=== PATIENT | female | born 1970 | race Caucasian/White ===

== ENCOUNTER 2017-10-09 10:16 | Emergency (ER) | payer OTHER ==
[~2017-10-09] VITALS: Ht 165.1 cm; Wt 108.0 kg
[2017-10-09 10:29] VITALS: BP 160/94
[2017-10-09 12:02] LABS: BASOPHILS # (AUTO) 0.01 x10^3/uL (0-0.1); BASOPHILS % (AUTO) 0 % (0-1); EOSINOPHILS # (AUTO) 0.48 x10^3/uL (0-0.4); EOSINOPHILS % (AUTO) 8 % (1-7); HCT (SEDRATE) 38.5 % (34.6-47.8); LYMPHOCYTES # (AUTO) 1.27 x10^3/uL (1-3.4); LYMPHOCYTES % (AUTO) 21 % (22-44); MD NO; MEAN CORPUSCULAR HEMOGLOBIN 29.3 pg (27.0-34.8); MEAN CORPUSCULAR HGB CONC 32.9 g/dL (32.4-35.8); MEAN CORPUSCULAR VOLUME 89.1 fL (80-100); MEAN PLATELET VOLUME 7.6 fL (7.4-10.4); MONOCYTES # (AUTO) 0.52 x10^3/uL (0.2-0.8); MONOCYTES % (AUTO) 9 % (2-9); NEUTROPHILS # (AUTO) 3.67 x10^3/uL (1.8-6.8); NEUTROPHILS % (AUTO) 62 % (42-75); PLATELET COUNT 222 x10^3/uL (130-400); RED BLOOD COUNT 4.33 x10^6/uL (3.82-5.3); RED CELL DISTRIBUTION WIDTH 14.1 % (9.6-15.2)
[2017-10-09 12:13] LABS: ALBUMIN 3.4 g/dL (3.4-5.0); ANION GAP 4 mmol/L (5-15); CALCIUM 8.7 mg/dL (8.5-10.1); CHLORIDE 108 mmol/L (98-107)
[2017-10-09 12:15] LABS: ALANINE AMINOTRANSFERASE 18 U/L (12-78); ALKALINE PHOSPHATASE 90 U/L (45-117); BILIRUBIN,TOTAL 0.6 mg/dL (0.2-1.0); CREATININE 0.71 mg/dL (0.55-1.02); TOTAL PROTEIN 7.8 g/dL (6.4-8.2)
[2017-10-09 12:38] LABS: SEDIMENTATION RATE 36 mm/hr (0-20)
== END 2017-10-09 13:27 | disposition home or self-care (01) ==
LOC: ED 12:59
DX: L01.01 Non-bullous impetigo (principal)
CPT/HCPCS: 36415; 80053; 85025; 85651; 99283; 99284

== ENCOUNTER 2018-08-30 22:53 | Emergency (ER) | payer MEDICAID, OTHER ==
[~2018-08-30] VITALS: Ht 165.1 cm; Wt 96.9 kg
[2018-08-30] MEDS ORDERED: HYDROcodone/APAP 5/325 TABLET ONE (23:29)
[2018-08-30] MEDS ORDERED: HYDROcodone/APAP 5/325 TABLET PO ONE (23:30)
[2018-08-30 23:31] VITALS: BP 125/85
[2018-08-30] MEDS ORDERED: IBUP-1222 PO (23:38)
[2018-08-30] MEDS ORDERED: OXYC-432 PO (23:38)
== END 2018-08-30 23:54 | disposition home or self-care (01) ==
LOC: ED 23:45
DX: G89.29 Other chronic pain (principal); M25.552 Pain in left hip; E66.9 Obesity, unspecified; Z68.35 Body mass index [BMI] 35.0-35.9, adult
CPT/HCPCS: 99283